=== PATIENT | female | born 1975 | race Caucasian/White ===

== ENCOUNTER 2020-07-03 01:34 | Emergency (ER) | payer MEDICAID ==
[~2020-07-03] VITALS: Ht 162.6 cm; Wt 95.0 kg
[2020-07-03 01:55] VITALS: BP 168/93
[2020-07-03] MEDS ORDERED: ibuprofen tablet 400 MG TABLET PO ONE (03:10)
== END 2020-07-03 03:33 | disposition home or self-care (01) ==
LOC: ER 01:34
DX: G89.29 Other chronic pain (principal); M25.572 Pain in left ankle and joints of left foot; R10.2 Pelvic and perineal pain; Z98.890 Other specified postprocedural states; Z59.0 Homelessness
CPT/HCPCS: 99282